=== PATIENT | female | born 1945 | race Caucasian/White ===

== ENCOUNTER → 2016-06-15 | Outpatient (CLI) | payer OTHER ==
[~2016-06-15] MED LIST: ALDACTONE25 M1 PO; AMBIEN10 M1 PO; ASPIRIN81 M1 PO; ATENOLOL; ATENOLOL25 MG PO; AUGMENTIN 875875 MG PO; BAYER GENUINE325 M1 PO; CITALOPRAM20 MG PO; DOXY-D100 MG PO; DOXYCYCLINE100 M3 PO; Diclofenac Sod100 MG; FOLIC ACID1 MG PO; FOSAMAX70 MG PO; LISINOPRIL2.5 MG PO; MISOPROSTOL200 MCG; MUCINEX DM 30/61 TAB PO; MUPIROCIN21 T; NICODERM21 MG/24 H TD; OYSCO 500 + D 51 TAB PO; PREDNISONE10 MG PO; PREDNISONE5 MG PO; PROAIR; PROAIR HFA0.09 MG/AC INH; ROBITUSSIN AC 10 MG/ PO; ROBITUSSIN-AC120 ML PO; SPIRONOLACT; SYMBICORT1 AE1 INH; VITAMIN D; VITAMIN D50000 I1 PO; ZESTRIL,PRINIVIL5 MG PO; ZESTRIL2.5 MG PO
[2016-06-15 08:46] LABS: BASO # 0.1 10*3/uL (0.0-0.1); BASO % 0.8 % (0.0-1.0); EOS # 0.2 10*3/uL (0.0-0.4); EOS % 3.1 % (1.0-4.0); HEMATOCRIT 47.7 % (37.0-47.0); HEMOGLOBIN 15.7 g/dl (12.0-16.0); LYMPH % 26.5 % (27.0-41.0); MEAN CORPUSCULAR HGB 30.6 pg (27.0-31.0); MEAN CORPUSCULAR HGB CONC 32.9 g/dl (33.0-37.0); MEAN PLATELET VOLUME 10.5 fl (9.6-12.3); MONO # 0.7 10*3/uL (0.1-1.0); MONO % 8.7 % (3.0-9.0); NEUT # 4.5 10*3/uL (2.3-7.9); NEUT % 60.4 % (47.0-73.0); PLATELET COUNT AUTOMATED 228 10*3/uL (130-400); RED BLOOD COUNT 5.13 10*6/uL (4.10-5.10); RED CELL DISTRI WIDTH 12.6 % (0-14.5); WHITE BLOOD COUNT 7.5 10*3/uL (4.8-10.8)
[2016-06-15 08:48] LABS: ALBUMIN 3.8 gm/dl (3.1-4.5); ALKALINE PHOSPHATASE 72 U/L (45-117); BILIRUBIN, TOTAL 0.5 mg/dl (0.2-1.0); BUN 13 mg/dl (7-24); CARBON DIOXIDE 28 mmol/L (21-32); CHLORIDE 107 mmol/L (98-107); CHOLESTEROL 208 mg/dL (<200); EST GLOM FILT AFRICAN AMERICAN > 60 ml/min; GLUCOSE 102 mg/dL (65-99); HDL CHOLESTEROL 41 mg/dl (40-60); LDL CHOLESTEROL 116 mg/dL (9-159); POTASSIUM 4.4 mmol/L (3.5-5.1); SGOT/AST 15 IU/L (3-35); SGPT/ALT 19 U/L (12-78); SODIUM 142 mmol/L (136-145); TOTAL PROTEIN 7.7 gm/dL (6.4-8.2); TRIGLYCERIDES 257 mg/dl (<150); VLDL CHOLESTEROL 51 mg/dL (6-40)
== END | disposition home or self-care (01) ==
LOC: LAB 07:56
PROVIDERS: Family Medicine
DX: Z00.00 Encounter for general adult medical examination without abnormal findings (principal); I50.9 Heart failure, unspecified; J44.9 Chronic obstructive pulmonary disease, unspecified; I25.5 Ischemic cardiomyopathy; I10 Essential (primary) hypertension; E78.5 Hyperlipidemia, unspecified; Z95.810 Presence of automatic (implantable) cardiac defibrillator; Z72.0 Tobacco use; R06.02 Shortness of breath

== ENCOUNTER → 2016-10-07 | Outpatient (CLI) | payer OTHER | END | disposition home or self-care (01) | LOC: MAMMO 12:09 | DX: Z12.31 Encounter for screening mammogram for malignant neoplasm of breast (principal); Z13.820 Encounter for screening for osteoporosis; E55.9 Vitamin D deficiency, unspecified; F17.200 Nicotine dependence, unspecified, uncomplicated; Z78.0 Asymptomatic menopausal state; Z90.710 Acquired absence of both cervix and uterus; Z91.81 History of falling ==

== ENCOUNTER → 2016-10-08 | Outpatient (CLI) | payer OTHER ==
[2016-10-08 08:19] LABS: BASO # 0.1 10*3/uL (0.0-0.1); BASO % 0.9 % (0.0-1.0); EOS # 0.2 10*3/uL (0.0-0.4); EOS % 2.5 % (1.0-4.0); HEMATOCRIT 45.8 % (37.0-47.0); HEMOGLOBIN 14.8 g/dl (12.0-16.0); IG # 0.1 10*3/uL (0.0-0.1); LYMPH # 1.6 10*3/uL (1.3-4.4); LYMPH % 20.8 % (27.0-41.0); MEAN CELL VOLUME 91.6 fl (81.0-99.0); MEAN CORPUSCULAR HGB 29.6 pg (27.0-31.0); MEAN CORPUSCULAR HGB CONC 32.3 g/dl (33.0-37.0); MONO # 0.5 10*3/uL (0.1-1.0); MONO % 7.2 % (3.0-9.0); NEUT # 5.1 10*3/uL (2.3-7.9); NEUT % 67.8 % (47.0-73.0); PLATELET COUNT AUTOMATED 225 10*3/uL (130-400); WHITE BLOOD COUNT 7.5 10*3/uL (4.8-10.8)
[2016-10-08 08:48] LABS: ALBUMIN 3.7 gm/dl (3.1-4.5); ALKALINE PHOSPHATASE 70 U/L (45-117); BILIRUBIN, TOTAL 0.3 mg/dl (0.2-1.0); BUN 16 mg/dl (7-24); CARBON DIOXIDE 28 mmol/L (21-32); CHLORIDE 109 mmol/L (98-107); CHOLESTEROL 188 mg/dL (<200); EST GLOM FILT AFRICAN AMERICAN > 60 ml/min; GLUCOSE 92 mg/dL (65-99); HDL CHOLESTEROL 44 mg/dl (40-60); LDL CHOLESTEROL 120 mg/dL (9-159); POTASSIUM 4.2 mmol/L (3.5-5.1); SGOT/AST 17 IU/L (3-35); SGPT/ALT 14 U/L (12-78); SODIUM 145 mmol/L (136-145); TOTAL PROTEIN 7.3 gm/dL (6.4-8.2); TRIGLYCERIDES 121 mg/dl (<150); VLDL CHOLESTEROL 24 mg/dL (6-40)
[2016-10-08 08:56] LABS: THYROID STIM HORMONE (HS) 0.953 uIU/ml (0.358-4.75)
== END | disposition home or self-care (01) ==
LOC: LAB 08:01
PROVIDERS: Family Medicine
DX: I11.0 Hypertensive heart disease with heart failure (principal); I50.9 Heart failure, unspecified; E78.5 Hyperlipidemia, unspecified; I25.5 Ischemic cardiomyopathy; J44.9 Chronic obstructive pulmonary disease, unspecified; Z95.810 Presence of automatic (implantable) cardiac defibrillator

== ENCOUNTER → 2017-02-09 | Outpatient (CLI) | payer OTHER | END | disposition home or self-care (01) | LOC: LAB 15:55 | DX: R19.7 Diarrhea, unspecified (principal) ==

== ENCOUNTER → 2017-03-18 | Outpatient (CLI) | payer OTHER | END | disposition home or self-care (01) | LOC: LAB 15:36 | DX: A04.8 Other specified bacterial intestinal infections (principal) ==

== ENCOUNTER 2017-03-27 02:32 | Inpatient (IN) | payer OTHER ==
[~2017-03-27] VITALS: Ht 167.6 cm; Wt 67.2 kg
[2017-03-27] VITALS (7 sets, daily range): BP systolic 108–130; BP diastolic 47–80
--- NOTE | ~2017-03-27 | CON ---
[place], [place] REPORT OF CONSULTATION NAME: [id number] UN[facility] #: [id number] ROOM: [facility] DOCTOR: PHUC SUTHERLAND ED.D) BIRTHDATE: [birth year] DOS: 03/28/2017 HISTORY OF PRESENT ILLNESS: The patient is a 71-year-old female referred by the hospitalist for an overdose in a suicide attempt. At the present time, this patient is in the intensive care unit at [facility]. She presently resides with her boyfriend and she does have 3 children. Her family physician has been Dr. Arzola. PAST MEDICAL HISTORY: Pertinent for COPD, major depression, hypertension and cardiac disease. MEDICATIONS: Include ProAir, Fosamax, Symbicort, atenolol, vitamin D, Zestril, Aldactone and Ambien. She apparently overdosed on trazodone, amoxicillin, Flagyl, and Prilosec. SOCIAL HISTORY: The patient does admit smoking 1 pack of cigarettes per day and drinks alcohol on weekends, but she denies significant alcohol consumption. PHYSICAL EXAMINATION: This patient was awake, alert and oriented in all 3 spheres, but was extremely tearful. She admits that she wants to kill herself, but states she will not tell me how she is going to do it. I suggested she have inpatient psychiatric care and she states she really want to go for inpatient care, but she is still suicidal, so therefore, she will go and if she refuses to go, she should be pink slipped to make her an involuntary admission. This patient does not appear to be having any delusional thoughts or hallucinations at this time. DIAGNOSIS: Major depressive disorder, recurrent -- severe. RECOMMENDATIONS: 1. The patient should be admitted to behavioral health unit as soon as possible and this was discussed with Dr. Webb and Dr. Drew. 2. If the patient refuses admission to the behavioral health unit, she should be pink slipped for emergency admission. Thank you very much for this consult. PHUC SUTHERLAND ED.D CM:CONSTR:REPORT OF CONSULTATION 1059 03/28/17 6309 interface
[~2017-03-27 02:32] MED LIST changes: +PROAIR HFA8.5 GM INH
[2017-03-27 03:03] LABS: BASO # 0.1 10*3/uL (0.0-0.1); BASO % 0.8 % (0.0-1.0); EOS # 0.1 10*3/uL (0.0-0.4); EOS % 1.2 % (1.0-4.0); HEMATOCRIT 42.8 % (37.0-47.0); HEMOGLOBIN 14.6 g/dl (12.0-16.0); LYMPH # 1.8 10*3/uL (1.3-4.4); LYMPH % 27.6 % (27.0-41.0); MEAN CELL VOLUME 90.7 fl (81.0-99.0); MEAN CORPUSCULAR HGB 30.9 pg (27.0-31.0); MEAN CORPUSCULAR HGB CONC 34.1 g/dl (33.0-37.0); MEAN PLATELET VOLUME 9.6 fl (9.6-12.3); MONO # 0.5 10*3/uL (0.1-1.0); MONO % 7.3 % (3.0-9.0); NEUT # 4.1 10*3/uL (2.3-7.9); NEUT % 62.2 % (47.0-73.0); PLATELET COUNT AUTOMATED 211 10*3/uL (130-400); RED BLOOD COUNT 4.72 10*6/uL (4.10-5.10); RED CELL DISTRI WIDTH 12.4 % (0-14.5); WHITE BLOOD COUNT 6.6 10*3/uL (4.8-10.8)
[2017-03-27 03:16] LABS: BILIRUBIN NEGATIVE (NEGATIVE); BLOOD TRACE-INTACT (NEGATIVE); CLARITY CLEAR (CLEAR); COLOR YELLOW (YELLOW); GLUCOSE NEGATIVE (NEGATIVE); KETONE NEGATIVE (NEGATIVE); LEUKO ESTERASE 1+ (NEGATIVE); NITRITE NEGATIVE (NEGATIVE); PH 5.5 (5.0-9.0); SPECIFIC GRAVITY <= 1.005 (1.005-1.030); UROBILINOGEN 0.2 E.U./dl (0.2-1.0)
[2017-03-27 03:21] LABS: ALBUMIN 3.7 gm/dl (3.1-4.5); ALKALINE PHOSPHATASE 67 U/L (45-117); BUN 14 mg/dl (7-24); CHLORIDE 103 mmol/L (98-107); POTASSIUM 3.9 mmol/L (3.5-5.1); SGOT/AST 21 IU/L (3-35); SGPT/ALT 18 U/L (12-78); SODIUM 139 mmol/L (136-145); TOTAL PROTEIN 7.4 gm/dL (6.4-8.2)
[2017-03-27 03:22] LABS: BACTERIA 1+
[2017-03-27 03:23] LABS: ACETAMINOPHEN (TYLENOL) < 2.0 ug/ml (10-30); TROPONIN I < 0.015 ng/ml (<0.045)
[2017-03-27 03:24] LABS: URINE AMPHETAMINES < 1000 (1000ng/ml); URINE BARBITURATES < 200 (200ng/ml); URINE BENZODIAZEPINES < 200 (200ng/ml); URINE CANNABINOIDS (THC) < 50 (50ng/ml); URINE COCAINE < 300 (300ng/ml); URINE METHADONE < 300 (300ng/ml); URINE OPIATES < 300 (300ng/ml)
[2017-03-27 03:25] LABS: URINE PHENCYCLIDINE < 25 (25ng/ml)
--- NOTE | 2017-03-27 04:13 | NUR ---
PATIENT WITH SALINE AND MAG SULFATE RUNNING AT TIME OF ADMISSION
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
[2017-03-27 07:09] LABS: THYROID STIM HORMONE (HS) 0.677 uIU/ml (0.358-4.75)
[2017-03-27 07:10] LABS: ACT PARTIAL THROMBO TIME 22.7 SECONDS (20.8-31.5); INTERNATIONAL NORM RATIO 0.9 (2.0-3.5)
[2017-03-27 07:46] LABS: VITAMIN D, 25-HYDROXY 32.7 ng/mL (30-100)
[2017-03-27] MEDS ORDERED: TRAZODONE50 MG PO (08:32)
--- NOTE | 2017-03-27 08:37 | NUR ---
Listless, when asked if she still felt suicidal states "I just want to go away" Dr. Simons was notifie co f consult and stated he would see this pt. in thae AM, just keep her here.
--- NOTE | 2017-03-27 08:42 | NUR ---
Suicide risk scale is 53.
--- NOTE | 2017-03-27 08:43 | NUR ---
Breakfast offered. declined sy=tates wants nothing, Not making eye contact during assessment , staring at the cieling.
--- NOTE | 2017-03-27 09:58 | NUR ---
S.O brought in a bag of clothing it was labeled and placed on the counter. med list brought in and updated.
--- NOTE | 2017-03-27 10:13 | NUR ---
Dtr. called in and update was given. While speaking with her daughter . I heard her tell her dtr. "I just don't want to live anymore". Clothing added to clothing list.
--- NOTE | 2017-03-27 10:21 | NUR ---
poisen control called in update was given.
--- NOTE | 2017-03-27 12:20 | NUR ---
took minimal amt breakfast of toat juice and coffee. .Moist cough. pt. at times will cough forcefully and attempt to puke. nasal congestion noted lungs remain clear to ascultation. Mostly side lying with eyes closed.
--- NOTE | 2017-03-27 15:52 | NUR ---
Dr. Murray ans. service was notified of consult.
[2017-03-28] VITALS: BP 92/54
[2017-03-28 04:00] VITALS: BP 108/54
[2017-03-28 05:03] LABS: BASO % 0.4 % (0.0-1.0); EOS # 0.2 10*3/uL (0.0-0.4); EOS % 3.1 % (1.0-4.0); HEMOGLOBIN 12.7 g/dl (12.0-16.0); LYMPH # 1.4 10*3/uL (1.3-4.4); LYMPH % 20.5 % (27.0-41.0); MEAN CORPUSCULAR HGB 30.7 pg (27.0-31.0); MEAN CORPUSCULAR HGB CONC 32.6 g/dl (33.0-37.0); MEAN PLATELET VOLUME 9.8 fl (9.6-12.3); MONO # 0.6 10*3/uL (0.1-1.0); MONO % 9.4 % (3.0-9.0); NEUT # 4.5 10*3/uL (2.3-7.9); PLATELET COUNT AUTOMATED 184 10*3/uL (130-400); RED BLOOD COUNT 4.14 10*6/uL (4.10-5.10); RED CELL DISTRI WIDTH 12.8 % (0-14.5); WHITE BLOOD COUNT 6.8 10*3/uL (4.8-10.8)
[2017-03-28 05:10] LABS: MEAN CELL VOLUME 94.2 fl (81.0-99.0)
[2017-03-28 05:31] LABS: ALBUMIN 2.8 gm/dl (3.1-4.5); ALKALINE PHOSPHATASE 63 U/L (45-117); BUN 10 mg/dl (7-24); CHLORIDE 111 mmol/L (98-107); CREATININE 0.66 mg/dL (0.55-1.02); POTASSIUM 4.1 mmol/L (3.5-5.1); SGOT/AST 17 IU/L (3-35); SGPT/ALT 14 U/L (12-78); SODIUM 143 mmol/L (136-145); TOTAL PROTEIN 5.9 gm/dL (6.4-8.2)
--- NOTE | 2017-03-28 07:48 | NUR ---
Awake, listless. Discussed depression w/ pt. states just dosen't want to live anymore. When asked if she had a plan , she stated yes but she isn't going to tell anyone.
[2017-03-28 08:00] VITALS: BP 124/61
--- NOTE | 2017-03-28 09:40 | NUR ---
Dr. Simons in to [facility]. will speak with dr. guzman on his arrival. S.0 in to visit. initally refused all meds and then took them with much encouragement , coughing after ingestion and weepy. Breakfast encouraged by S.O.
--- NOTE | 2017-03-28 11:11 | NUR ---
in , spoke w/ Dr. Simons. Medically cleared to go to [facility] [place] , awiting cardiology for echo prior to transfer.
[2017-03-28 12:00] VITALS: BP 122/64
[2017-03-28] MEDS ORDERED: ZOLPIDEM TART10 MG PO (13:02)
--- NOTE | 2017-03-28 14:05 | NUR ---
Echo complete , IV removed. U aware. Discharge pending.
--- NOTE | 2017-03-28 14:57 | NUR ---
Discharged to [facility].
[2017-03-28] MEDS ORDERED: CELEXA20 MG PO (15:14)
[2017-03-28] MEDS ORDERED: TRAZODONE50 MG PO (15:15)
== END 2017-03-28 14:57 | disposition home health service (06) | DRG 917 ==
LOC: ED 02:32 → EDHOLD 03:28 → ICCU 03:28
PROVIDERS: Internal Medicine; Student in an Organized Health Care Education/Training Program; ADMIT Internal Medicine
DX: T43.212A Poisoning by selective serotonin and norepinephrine reuptake inhibitors, intentional self-harm, initial encounter (principal); A41.9 Sepsis, unspecified organism; E43 Unspecified severe protein-calorie malnutrition; F33.2 Major depressive disorder, recurrent severe without psychotic features; N39.0 Urinary tract infection, site not specified; J44.9 Chronic obstructive pulmonary disease, unspecified; E87.8 Other disorders of electrolyte and fluid balance, not elsewhere classified; F10.920 Alcohol use, unspecified with intoxication, uncomplicated; T36.0X2A Poisoning by penicillins, intentional self-harm, initial encounter; T37.3X2A Poisoning by other antiprotozoal drugs, intentional self-harm, initial encounter; F17.210 Nicotine dependence, cigarettes, uncomplicated; T47.1X2A Poisoning by other antacids and anti-gastric-secretion drugs, intentional self-harm, initial encounter; E78.1 Pure hyperglyceridemia; I45.81 Long QT syndrome; I10 Essential (primary) hypertension; F41.9 Anxiety disorder, unspecified; G47.00 Insomnia, unspecified; Z53.29 Procedure and treatment not carried out because of patient's decision for other reasons; Z90.49 Acquired absence of other specified parts of digestive tract; Z90.710 Acquired absence of both cervix and uterus; Z83.3 Family history of diabetes mellitus; Z82.49 Family history of ischemic heart disease and other diseases of the circulatory system; Z79.899 Other long term (current) drug therapy; Y92.098 Other place in other non-institutional residence as the place of occurrence of the external cause; Z68.23 Body mass index [BMI] 23.0-23.9, adult

== ENCOUNTER 2017-03-28 14:00 | Inpatient (IN) | payer OTHER ==
[~2017-03-28] VITALS: Ht 172.7 cm; Wt 64.6 kg
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
[~2017-03-28 14:00] MED LIST changes: +TRAZODONE50 MG PO; +ZOLPIDEM TART10 MG PO
--- NOTE | 2017-03-28 15:02 | NUR ---
NATALIA MILLIGAN a 71 year old F admitted via wheel chair from the [facility] as a VOLUNTARY admission. Arrived on unit at 1502. ALLERGIES: NKDA. Vital signs are: [id number]% ROOM AIR. The client signed the following forms with stated understanding: Authorization For The Release of Medical Information, Clothing List, Consent to Voluntary Admission and Hospitalization, Consent and Release Forms/Receipt of Rights, Acknowledgement of Advance Directive Information, Behavioral Health Consent Form, and Informed Consent of Medications. Admitted under the services of Dr. HOWIE EMANUEL,[facility]. A search was conducted and hazardous articles were removed. Client was oriented to the unit. [facility]
[2017-03-28] MEDS ORDERED: CELEXA20 MG PO (15:14)
[2017-03-28] MEDS ORDERED: TRAZODONE50 MG PO (15:15)
--- NOTE | 2017-03-28 15:19 | NUR ---
DR. GRAMAJO NOTIFIED OF CONSULT FOR MEDICAL MANAGEMENT.
--- NOTE | 2017-03-28 15:22 | NUR ---
HOME MEDS VERIFIED WITH PHARMACIST AT [facility] IN [place], PT'S HOME PHARMACY. MED REC UPDATED ACCORDING TO MED LIST AND DISCHARGE MEDS FROM ICU. MEDS REVIEWED WITH DR. DENISE. NEW ORDERS RECIEVED, READ BACK AND VERIFIED.
[2017-03-28 15:27] VITALS: BP 116/67
[2017-03-28 16:29] VITALS: BP 116/67
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
[2017-03-28 20:18] VITALS: BP 110/64
--- NOTE | 2017-03-28 21:32 | NUR ---
24 HR chart check completed.
--- NOTE | 2017-03-28 22:43 | NUR ---
RESTED IN HER ROOM & CAME TO DINING ROOM VIA WHEELCHAIR FOR HS SNACK. COMPLIANT WITH HS MEDICATIONS. GAIT SLIGHTLY UNSTEADY AT TIMES. DEPRESSED MOOD SAD & TEARFUL. DENIES SUICIDAL FEELINGS & STATED THAT WHAT SHE DID WAS STUPID. VOICED HOPELESS HELPLESS FEELINGS WITH FAMILY ISSUES & MEDICAL ISSUES. DENIES HAVING WISH BUT STATED, "WHEN ITS MY TIME TO GO ITS MY TIME TO GO". DENIES SENSORY DISTURBANCE & NONE IS NOTED THIS EVENING. PT DID STATE THAT SHE IS TIRED & RESTED IN BED.
--- NOTE | 2017-03-29 05:33 | NUR ---
PT HAS BEEN OBSERVED ON Q 15 MIN CHECKS & HAS SLEPT QUIETLY THROUGHOUT THE SHIFT PAST 2129 WITH 1 BRIEF AWAKENING TO GO TO THE BATHROOM WITH ASSISTANCE FROM STAFF.
[2017-03-29 07:44] LABS: ALKALINE PHOSPHATASE 64 U/L (45-117); BUN 10 mg/dl (7-24); CHLORIDE 108 mmol/L (98-107); CHOLESTEROL 163 mg/dL (<200); CREATININE 0.66 mg/dL (0.55-1.02); HDL CHOLESTEROL 35 mg/dl (40-60); LDL CHOLESTEROL 97 mg/dL (9-159); POTASSIUM 4.5 mmol/L (3.5-5.1); SGOT/AST 13 IU/L (3-35); SGPT/ALT 15 U/L (12-78); SODIUM 142 mmol/L (136-145); TOTAL PROTEIN 6.4 gm/dL (6.4-8.2); TRIGLYCERIDES 154 mg/dl (<150); VLDL CHOLESTEROL 31 mg/dL (6-40)
[2017-03-29 08:27] VITALS: BP 133/62
--- NOTE | 2017-03-29 08:56 | NUR ---
TREATMENT TEAM WAS HELD WITH THE FOLLOWING: DR. DENISE, RESIDENT, MEDICAL STUDENT, RNs, AT, SWs. NO DISCHARGE DATE.
--- NOTE | 2017-03-29 10:00 | NUR ---
DR LEA ON UNIT TO SEE PATIENT.
--- NOTE | 2017-03-29 11:34 | NUR ---
Exercise/Riddles & Games Patient did not attend group this morning. Patient was asleep in her room. patient was encourageed to join group but still refused
--- NOTE | 2017-03-29 15:05 | NUR ---
Reminiscing And Puzzles Patient did not attend group this afternoon. Patient was asleep in bed.
--- NOTE | 2017-03-29 15:57 | NUR ---
PATIENT IS ALERT AND ORIENT TO PERSON, PLACE AND TIME. RESPIRATIONS ARE EASY, NON-LABORED ON ROOM AIR. MOOD IS SAD AND DEPRESSED. THOUGHT PROCESS IS BECOMING ORGANIZED. DENIES ANY HALLUCINATIONS, DELUSIONS, HI/SI OR PAIN. PATIENT REQUIRES 1 PERSON SUPERVISION WITH ACTIVITIES OF DAILY LIVING. CONTINENT OF BOWEL AND BLADDER. MEAL INTAKES ARE GOOD WITH ADEQUATE FLUIDS. SELF PROPELS IN WHEELCHAIR THOUGHOUT THE UNIT. PATIENT IS ISOLATIVE IN ROOM AND UP FOR MEALS. PATIENT IN CALM, INTERACTIVE WITH STAFF. MEDICATION COMPLIANT WITH MED EDUCATION. Q 15 MINUTE SAFETY CHECKS MAINTIAINED. CONTINUE TO ENCOURAGE PATIENT TO EXPRESS FEELING AND PROVIDE 1:1 NEEDED.
--- NOTE | 2017-03-29 16:14 | NUR ---
Shift chart check completed.
[2017-03-29 20:00] VITALS: BP 109/60
--- NOTE | 2017-03-29 21:30 | NUR ---
PATIENT URINE COLLECTED VIA CLEAN CATCH. URINE YELLOW WITH OUTPUT OF 200ML. PATIENT COMPLAINT OF DISCOMFORT WITH URINATION AT TIMES. URINE SENT TO LABORATORY
--- NOTE | 2017-03-29 22:00 | NUR ---
PATIENT WITH NO SUICIDAL OR HOMICIDAL IDEATIONS. PATIENT MOOD DEPRESSED AND ISOLATIVE TO ROOM AT TIMES. PATIENT WITH NO HALLUCINATION OR DELUSIONS AT THIS TIME. PATIENT WITH UNSTEADY GAIT AND USES WHEELCHAIR. MEDICATION COMPLIANT
--- NOTE | 2017-03-30 01:38 | NUR ---
24 HR chart check completed.
[2017-03-30 08:04] VITALS: BP 106/63
--- NOTE | 2017-03-30 09:17 | NUR ---
TREATMENT TEAM WAS HELD WITH DR. DENISE, RNs, AT, SW. REFERRRAL TO ESTER SMITH FOR COUNELOING. HEAVY SMOKER REFUSED PATCH.
--- NOTE | 2017-03-30 10:43 | NUR ---
Exercises and fall remenissing Patient attended group with appropriate participation. Patient engaged easily with exercises and group discussion. Patient at times requires redirection to stay on topic. Patient report no SI throughout group.
--- NOTE | 2017-03-30 10:47 | NUR ---
Exercises and remenissing Patient did not attend group stating desire to sleep at this time. Encouraged participation and educated on benefits however patients continued to decline.
--- NOTE | 2017-03-30 11:02 | NUR ---
Exercises and remenissing Patient did not attend group this am stating she wanted to sleep. Educated and encouraged patient for participation however patient continued to decline.
--- NOTE | 2017-03-30 11:18 | NUR ---
JORGITO OSEGUERA'S OFFICE NOTIFIED OF NEW CONSULT FOR COUNSELING SERVICES.
--- NOTE | 2017-03-30 11:41 | NUR ---
Occupational Therapy evaluation completed this date on [facility] with full to follow. Patient was hospitalized with suicide and drug overdose. She lives with her boyfriend in a mobile home and plans to return there upon d/c. She was seated in a w/c and has used since on [facility]. She is able to perform five times sit to insurance job titles 23 seconds. She was able to perform sit to stands safely and reports that at home she walked very little. She reports that she is not "supposed to raise her arms overhead since pacer 2013". She demonstrates good functional mobilty at a slow rate and indep in ADLs and xfers. At this time no further OT indicated. Thank you for this referral. Anisa Segovia OTR/L
--- NOTE | 2017-03-30 11:51 | NUR ---
PHYSICAL THERAPY PAtient evaluated on 3, full evaluation to follow. Continue with PT as per plan of care with fall and unit three precautions. Return to home with boyfriend and home health RN and PT. PAtient is moderate complexity is chart review, tests and evaluation: 12054. Thank you for this referral. Martita Rouse,PT
--- NOTE | 2017-03-30 14:44 | NUR ---
Meaningful Me group Patient attended and actively participated in group. Patient able to answer personal/coping questions along with actively join in group discussion with peers. Patient does not report any SI or self destructive thoughts. Patient again requires redirection when bringing up being given up as a child. Patient easily redirected.
--- NOTE | 2017-03-30 14:47 | NUR ---
Meaningful Me Patient actively participated in group with appropriate answers/conversation. Patient able to answer coping/personal question with good responces and how to make better choices. Patient does not report any SI or delf destructive thoughts.
--- NOTE | 2017-03-30 17:58 | NUR ---
PATIENT IS ALERT AND ORIENT TO PERSON, PLACE AND TIME, ABLE TO VIOCE NEEDS. RESPIRATION ARE EASY, NON-LABORED ON ROOM AIR. MOOD IS DEPRESSED. THOUGHT PROCESS IS ORGANIZED AND GOAL DIRECTED. DENIES ANY HALLUCINAITONS, DELUSIONS, SI/HI OR PAIN. PATIENT IS COOPERATIVE AND INTERACTIVE WITH STAFF AND OTHER PATIENTS. PARTICIPATES IN GROUP SESSION THIS AFTERNOON. SUPERVISION AND ASSISTANCES NEEDED. PATIENT IS AMBULATORY WITH STEADY GAIT. CONTINENT OF BOWEL AND BLADDER. MEAL INTAKES ARE GOOD WITH ADEQUATE FLUIDS. Q 15 MINUTE SAFETY CHECKS. MEDICATION COMPLIANT WITH EDUCAITON PROVIDED. CONTINUE TO MONITOR PATIENT'S MOOD AND ENCOURAGE PATIENT TO NOTIFY NURSE IF HAVING THOUGHTS OF SUICIDE. 1:1 PROVIDED TO EXPRESS FEELING NEEDED.
[2017-03-30 20:00] VITALS: BP 118/54
--- NOTE | 2017-03-30 21:30 | NUR ---
PATIENT RESTING IN BED WITH COMPLAINT OF HEADACHE. PATIENT STATED THAT SHE DID NOT SLEEP MUCH THE PREVIOUS NIGHT DUE TO ANOTHER PATIENT YELLING THROUGHOUT THE NIGHT. TYLENOL 650MG GIVEN WITH EFFECTIVE RESULTS. PATIENT DENIES SUICIDE/HOMICIDE IDEATIONS. PATIENT CALM AND PURPOSEFUL. PATIENT STATED SHE WAS TIRED
--- NOTE | 2017-03-31 03:53 | NUR ---
24 HR chart check completed.
--- NOTE | 2017-03-31 06:54 | NUR ---
Q 15 MINUTE CHECKS MAINTAINED. SLEPT > 8 HOURS THIS THROUGHOUT SHIFT. CONTINUES ON PYRIDIUM. VOICES NO COMPLAINT OF DYSURIA AT THIS TIME
[2017-03-31 07:54] VITALS: BP 113/53
--- NOTE | 2017-03-31 08:15 | NUR ---
TREATMENT TEAM WAS HELD WITH THE FOLLOWING: DR. DENISE, SEARCH CONSULTANT, MEDICAL STUDENT, RNs, SWs, AT. DR. DENISE DISCHARGING PT Tuesday03-31-17. FOLLOW UP WITH [facility] AND DR NATARAJAN PANAMA OFFICE AT [facility]
[2017-03-31] MEDS ORDERED: MIRTAZAPINE15 M2 PO (09:02)
[2017-03-31] MEDS ORDERED: HYDROXYZINE PAM25 M1 PO (09:02)
--- NOTE | 2017-03-31 09:49 | NUR ---
PHYSICAL THERAPY Denae seen this AM 1:1 for her physical therapy session. Pt was up in the day room. Transfer sit/stand and up on wheeled walker which she said that she did not need. Gait 45' with wheeled wakler supervision x 1, no LOB. Followed by gait 290' X 1, supervision X 1, no LOB. Working in gait balance with gait backwards, right and left side stepping, 360 turn CG X 1, no LOB. Pt back up in the day room no complaints. RUFUS VELÁSQUEZ DIRECTOR OF REHABILITATIVE SERVICES.
--- NOTE | 2017-03-31 11:00 | NUR ---
VM FROM DTR UMAIR INWUIRING IF PT WAS BEING DISCHARGE TODAY. SW RETURNED CALL AND DTR CAN MASH FILTER CLOTH CHANGER AT NOON.
--- NOTE | 2017-03-31 11:22 | NUR ---
Conversation and Goals Patient did attend group in the very begining but became dizzy and sick to her stomach. AC and nurse escorted PT back to her room
--- NOTE | 2017-03-31 11:47 | NUR ---
Mood is depressed, however Denae reports that she is feeling "better." Dr. Drew in to see Denae this morning with orders received to discharge to home today. Denae denies any thoughts of self harm and states, "That was a stupid thing to do." She reports that she wants "to live" and states a desire to return home today. Energy level is low. Appetite is good. Appropriate in conversation with staff and peers. Refer to [facility] flowsheet for specific monitoring this shift. Discharge medications and follow up appointments reviewed with Denae and daughter. She states that she will comply with all follow up care. Refer to disposition for specific post discharge instructions.
--- NOTE | 2017-03-31 12:11 | NUR ---
DAPHNIE SCHEDULED FOLLOWUP APPOINTMENTS WITH [facility] ON 04/[address] ACOSTA ON 04/04 AT 1:30PM.
--- NOTE | 2017-03-31 12:12 | NUR ---
DAPHNIE AND RN REVIEWED DISCHARGE PAPERWORK WITH PT. PT WAS DISCHARGED HOME WITH [facility] PROVIDING TRANSPORATION. FOLLOW UP APPOINTMENTS ON WEDNESDAY 04/04 [facility] [address] ACOSTA 04/04 1:30PM.
--- NOTE | 2017-03-31 12:16 | NUR ---
SW MADE FOLLOW UP APPOINTMENTS WITH [facility] FOR 04/04 AT 1:15 AND [facility] FOR 04/06 AT 10:40.
--- NOTE | 2017-03-31 12:17 | NUR ---
SW AND RN REVIEWED DISHCARGE PAPERWORK WIT PT. SIGNATURES OBTAINED AND COPY GIVEN TO PT. PT WAS DISCHARGED HOME WITH [facility] PROVIDING TRANSPORTATION. FOLLOW [facility] ON 06/04 AT 1:15PM AND [facility] 04/06 AT 10:40AM.
--- NOTE | 2017-03-31 12:21 | NUR ---
Medication education and discharge appointments reviewed with Denae's daughter and she states understanding. Denae left this unit on this date @ approximately 12:10 pm. She is alert and oriented and is being accompanied by her daughter. Destination is home. Prior to her departure all personal items were returned to her. Refer to disposition for specific post discharge instructions.
--- NOTE | 2017-03-31 16:27 | NUR ---
Gasoline Truck Crane Operator Note: Discharge information faxed to [facility] and to Hank yanez CNP at [facility].
--- NOTE | 2017-04-01 08:02 | NUR ---
PHYSICAL THERAPY CO-SIGN I approve of the Phyical Therapy notes written above. ANUJ ALMANZA PT
== END 2017-03-31 12:10 | disposition home or self-care (01) | DRG 885 ==
LOC: 3N 14:00
PROVIDERS: ADMIT Psychiatry & Neurology Psychiatry
DX: F33.2 Major depressive disorder, recurrent severe without psychotic features (principal); I42.9 Cardiomyopathy, unspecified; I50.22 Chronic systolic (congestive) heart failure; I11.0 Hypertensive heart disease with heart failure; J44.9 Chronic obstructive pulmonary disease, unspecified; I25.2 Old myocardial infarction; D64.9 Anemia, unspecified; M19.90 Unspecified osteoarthritis, unspecified site; Z87.891 Personal history of nicotine dependence; F34.1 Dysthymic disorder; E78.1 Pure hyperglyceridemia; R94.31 Abnormal electrocardiogram [ECG] [EKG]; G47.00 Insomnia, unspecified; F41.9 Anxiety disorder, unspecified; R30.0 Dysuria; Z95.0 Presence of cardiac pacemaker; Z90.49 Acquired absence of other specified parts of digestive tract; Z90.710 Acquired absence of both cervix and uterus; Z82.49 Family history of ischemic heart disease and other diseases of the circulatory system; Z79.899 Other long term (current) drug therapy; Z91.5 Personal history of self-harm

== ENCOUNTER → 2017-07-19 | Outpatient (CLI) | payer OTHER ==
[~2017-07-19] MED LIST changes: +ASPIR 8181 MG PO; +CELEXA20 MG PO; +FOSAMAX70 M1 PO; -FOSAMAX70 MG PO; +HYDROXYZINE PAM25 M1 PO; +MIRTAZAPINE15 M2 PO
--- NOTE | ~2017-07-19 | ST ---
[place], [place] EXERCISE STRESS TEST REPORT NAME: [facility]: [id number] UNIT #: [id number] ROOM: DOCTOR: DEANDRE DE LA CRUZ MD BIRTHDATE: [birth year] DOS: 07/19/2017 Dobutamine portion of the dobutamine stress test. Baseline cardiogram normal sinus rhythm with mild ST depressions in the inferior leads. The patient received dobutamine up to 30 mcg in 10 mcg increments every 3 minutes. Peak heart rate is 143, more than 85% of predicted heart rate. There is more pronounced ST depression in the inferior leads. The patient received baseline echocardiogram, which revealed an ejection fraction about 10% with akinetic septum and global hypokinesis with dobutamine. There is dyskinesis of the anterior wall and the anteroapical segment, mild improvement of the ejection fraction of the inferior wall. Total global ejection fraction improved to about 15%. The patient continues to smoke, extremely dyspneic with an EF of 10-15%. FINAL IMPRESSION: Abnormal dobutamine stress echo. Worsening of the ST segment with dobutamine. Positive shortness of breath. Dobutamine ejection fraction improved from 10% to 15%, mostly suggestion of scar tissue, but there is worsening of the anterior wall and anteroapical segment. We will consider to do a right and left heart catheterization. DEANDRE DE LA CRUZ MD CM:STRESS:EXERCISE STRESS TEST REPORT [id number] DEANDRE DE LA CRUZ MD
== END | disposition home or self-care (01) ==
LOC: CARD 03:42
DX: I20.9 Angina pectoris, unspecified (principal); R94.39 Abnormal result of other cardiovascular function study; R06.02 Shortness of breath

== ENCOUNTER → 2017-09-01 | Outpatient (CLI) | payer OTHER | END | disposition home or self-care (01) | LOC: RAD 10:23 | DX: J44.9 Chronic obstructive pulmonary disease, unspecified (principal); J40 Bronchitis, not specified as acute or chronic; I25.10 Atherosclerotic heart disease of native coronary artery without angina pectoris; R06.2 Wheezing; I10 Essential (primary) hypertension; I25.2 Old myocardial infarction; F17.200 Nicotine dependence, unspecified, uncomplicated ==

== ENCOUNTER → 2018-08-23 | Outpatient (CLI) | payer OTHER ==
[2018-08-23 10:05] LABS: ALBUMIN 3.7 gm/dl (3.1-4.5); BUN 11 mg/dl (7-24); CHLORIDE 104 mmol/L (98-107); CHOLESTEROL 161 mg/dL (<200); CREATININE 0.66 mg/dL (0.55-1.02); POTASSIUM 4.2 mmol/L (3.5-5.1); SGOT/AST 16 IU/L (3-35); SGPT/ALT 24 U/L (12-78); SODIUM 138 mmol/L (136-145); TOTAL PROTEIN 7.3 gm/dL (6.4-8.2); TRIGLYCERIDES 207 mg/dl (<150); VLDL CHOLESTEROL 41 mg/dL (6-40)
[2018-08-23 10:06] LABS: ALKALINE PHOSPHATASE 71 U/L (45-117); HDL CHOLESTEROL 32 mg/dl (40-60); LDL CHOLESTEROL 88 mg/dL (9-159)
== END | disposition home or self-care (01) ==
LOC: LAB 08:50
PROVIDERS: Registered Nurse Flight
DX: E78.5 Hyperlipidemia, unspecified (principal); E55.9 Vitamin D deficiency, unspecified; R73.01 Impaired fasting glucose

== ENCOUNTER → 2019-03-07 | Outpatient (CLI) | payer OTHER ==
[2019-03-07 12:51] LABS: BASO % 0.6 % (0.0-1.0); EOS # 0.1 10*3/uL (0.0-0.4); EOS % 1.1 % (1.0-4.0); HEMATOCRIT 45.3 % (37.0-47.0); HEMOGLOBIN 14.8 g/dl (12.0-16.0); LYMPH # 2.8 10*3/uL (1.3-4.4); LYMPH % 38.3 % (27.0-41.0); MEAN CELL VOLUME 91.3 fl (81.0-99.0); MEAN CORPUSCULAR HGB 29.8 pg (27.0-31.0); MEAN CORPUSCULAR HGB CONC 32.7 g/dl (33.0-37.0); MEAN PLATELET VOLUME 9.9 fl (9.6-12.3); MONO # 0.5 10*3/uL (0.1-1.0); MONO % 7.4 % (3.0-9.0); NEUT # 3.8 10*3/uL (2.3-7.9); NEUT % 52.3 % (47.0-73.0); PLATELET COUNT AUTOMATED 229 10*3/uL (130-400); RED BLOOD COUNT 4.96 10*6/uL (4.10-5.10); RED CELL DISTRI WIDTH 12.4 % (0-14.5); WHITE BLOOD COUNT 7.3 10*3/uL (4.8-10.8)
[2019-03-07 13:23] LABS: ALBUMIN 3.6 gm/dl (3.1-4.5); ALKALINE PHOSPHATASE 65 U/L (45-117); BUN 11 mg/dl (7-24); CHLORIDE 105 mmol/L (98-107); CHOLESTEROL 180 mg/dL (<200); CREATININE 0.68 mg/dL (0.55-1.02); HDL CHOLESTEROL 34 mg/dl (40-60); IRON 83 ug/dL (50-170); LDL CHOLESTEROL 101 mg/dL (9-159); POTASSIUM 3.6 mmol/L (3.5-5.1); SGOT/AST 18 IU/L (3-35); SGPT/ALT 16 U/L (12-78); SODIUM 139 mmol/L (136-145); TOTAL PROTEIN 6.9 gm/dL (6.4-8.2); TRIGLYCERIDES 224 mg/dl (<150); VLDL CHOLESTEROL 45 mg/dL (6-40)
[2019-03-07 13:27] LABS: THYROID STIM HORMONE (HS) 0.844 uIU/ml (0.358-4.75)
== END | disposition home or self-care (01) ==
LOC: LAB 12:28
PROVIDERS: Registered Nurse Flight
DX: E78.5 Hyperlipidemia, unspecified (principal); R55 Syncope and collapse; R53.83 Other fatigue; D64.9 Anemia, unspecified; Z79.899 Other long term (current) drug therapy

== ENCOUNTER → 2019-03-21 | Outpatient (CLI) | payer OTHER | END | disposition home or self-care (01) | LOC: US 10:42 | DX: I65.23 Occlusion and stenosis of bilateral carotid arteries (principal); R55 Syncope and collapse; R51 Headache; F17.200 Nicotine dependence, unspecified, uncomplicated ==

== ENCOUNTER 2019-07-16 11:52 | Inpatient (IN) | payer OTHER ==
[~2019-07-16] VITALS: Ht 165.1 cm; Wt 57.3 kg
[2019-07-16 11:58] VITALS: BP 95/62
[2019-07-16 13:25] LABS: BASO % 0.4 % (0.0-1.0); EOS % 0.2 % (1.0-4.0); HEMATOCRIT 43.6 % (37.0-47.0); HEMOGLOBIN 14.5 g/dl (12.0-16.0); LYMPH # 2.4 10*3/uL (1.3-4.4); LYMPH % 52.2 % (27.0-41.0); MEAN CELL VOLUME 88.8 fl (81.0-99.0); MEAN CORPUSCULAR HGB 29.5 pg (27.0-31.0); MEAN CORPUSCULAR HGB CONC 33.3 g/dl (33.0-37.0); MEAN PLATELET VOLUME 9.9 fl (9.6-12.3); MONO # 0.6 10*3/uL (0.1-1.0); MONO % 12.6 % (3.0-9.0); NEUT # 1.6 10*3/uL (2.3-7.9); NEUT % 34.4 % (47.0-73.0); PLATELET COUNT AUTOMATED 145 10*3/uL (130-400); RED BLOOD COUNT 4.91 10*6/uL (4.10-5.10); RED CELL DISTRI WIDTH 13.2 % (0-14.5); WHITE BLOOD COUNT 4.5 10*3/uL (4.8-10.8)
[2019-07-16 13:40] LABS: ALBUMIN 3.6 gm/dl (3.1-4.5); ALKALINE PHOSPHATASE 67 U/L (45-117); BUN 15 mg/dl (7-24); CHLORIDE 105 mmol/L (98-107); CREATININE 0.76 mg/dL (0.55-1.02); LIPASE 216 U/L (73-393); POTASSIUM 4.3 mmol/L (3.5-5.1); SGOT/AST 23 IU/L (3-35); SGPT/ALT 22 U/L (12-78); SODIUM 137 mmol/L (136-145); TOTAL PROTEIN 7.1 gm/dL (6.4-8.2)
[2019-07-16 16:00] VITALS: BP 112/60
[2019-07-16] MEDS ORDERED: DIGOXIN125 MCG PO (16:01)
[2019-07-16] MEDS ORDERED: TRAZODONE50 MG PO (16:01)
[2019-07-16 17:25] VITALS: BP 112/60
--- NOTE | 2019-07-16 17:25 | NUR ---
A 73YO FEMALE, admitted to , under the services of MILKA Barrera DO with a diagnosis of COPD EXACERBATION. Chief complaint is SHORTNESS OF BREATH AND COUGHING/CONGESTION. Patient arrived via stretcher from ER. Monitor applied. Initial assessment completed. Vital signs taken and recorded. MILKA BARRERA DO notified of admission to the unit. Orders received. See assessment for past medical history, medications and allergies. Patient and/or family oriented to unit. [facility]. Clothing/patient valuable form completed. SKINNY OTOOLE
--- NOTE | 2019-07-16 19:00 | NUR ---
ASSUMED CARE FOR THIS PT AT THIS TIME. PT RESTING QUIETLY IN BED. NO C/O VOICED AT PRESENT TIME. CALL LIGHT IN REACH.
--- NOTE | 2019-07-16 19:09 | NUR ---
DR. BOSS NOTIFIED OF CONSULT RE: COPD
[2019-07-16 21:19] VITALS: BP 111/61
[2019-07-17] VITALS: BP 111/52
--- NOTE | 2019-07-17 01:31 | NUR ---
24 HR chart check completed.
[2019-07-17 06:34] LABS: HEMATOCRIT 39.8 % (37.0-47.0); MEAN CELL VOLUME 88.6 fl (81.0-99.0); MEAN CORPUSCULAR HGB CONC 32.7 g/dl (33.0-37.0); MEAN PLATELET VOLUME 9.8 fl (9.6-12.3); PLATELET COUNT AUTOMATED 135 10*3/uL (130-400); RED BLOOD COUNT 4.49 10*6/uL (4.10-5.10); RED CELL DISTRI WIDTH 13.1 % (0-14.5)
[2019-07-17 06:47] LABS: WHITE BLOOD COUNT 1.9 10*3/uL (4.8-10.8)
[2019-07-17 06:51] LABS: BUN 14 mg/dl (7-24); CHLORIDE 108 mmol/L (98-107); CREATININE 0.63 mg/dL (0.55-1.02); PHOSPHOROUS 3.4 mg/dL (2.5-4.9); POTASSIUM 4.2 mmol/L (3.5-5.1); SODIUM 139 mmol/L (136-145)
--- NOTE | 2019-07-17 06:58 | NUR ---
CALL PLACED TO DR SIDHU TO REPORT WBC COUNT OF 1.9. NEUTROPENIC CAUTIONS ORDERED.
[2019-07-17 08:00] VITALS: BP 98/50
[2019-07-17 08:19] LABS: ATYPICAL LYMPHS 3 % (0-0); PLATELET SUFFICIENCY NORMAL (NORMAL); TOTAL CELLS COUNTED 100 #CELLS
--- NOTE | 2019-07-17 09:00 | NUR ---
Human Resources Executive in to talk to patient. Patient states lives at home with family. There are no steps in the home. Physician: delfina yanez [facility] [place] [facility] Patient's level of ADLs: INDEPENDENT Patient has working utilities: all working DME: [employer] Follow-up physician's appointment after d/c: will be made by hospitalist nrue director upon discharge Does patient want to access PORTAL?: no Discharge plan discussed with patient, she lives at home, is independent in adls and ambulation, she states she will return home when medically stable and denies any home needs, case management will follow. HARPREET FERRIS
[2019-07-17 09:30] LABS: HEMATOCRIT 37.9 % (37.0-47.0); HEMOGLOBIN 12.6 g/dl (12.0-16.0); MEAN CELL VOLUME 88.1 fl (81.0-99.0); MEAN CORPUSCULAR HGB 29.3 pg (27.0-31.0); MEAN CORPUSCULAR HGB CONC 33.2 g/dl (33.0-37.0); MEAN PLATELET VOLUME 9.8 fl (9.6-12.3); PLATELET COUNT AUTOMATED 133 10*3/uL (130-400); RED CELL DISTRI WIDTH 13.2 % (0-14.5)
[2019-07-17 09:32] LABS: WHITE BLOOD COUNT 1.8 10*3/uL (4.8-10.8)
[2019-07-17 09:48] LABS: ATYPICAL LYMPHS 3 % (0-0); PLATELET SUFFICIENCY NORMAL (NORMAL); TOTAL CELLS COUNTED 100 #CELLS
[2019-07-17 12:00] VITALS: BP 112/57
[2019-07-17 16:00] VITALS: BP 111/53
--- NOTE | 2019-07-17 19:00 | NUR ---
ASSUMED CARE FOR THIS PT AT THIS TIME. NO C/O VOICED AT THIS TIME. HARSH MOIST FREQ HEATER HELPER FORGE COUGH NOTED. SAT 94% RA. CALL LIGHT IN REACH.
[2019-07-17 20:00] VITALS: BP 105/65
[2019-07-18] VITALS: BP 119/50
[2019-07-18 02:25] LABS: BILIRUBIN NEGATIVE (NEGATIVE); BLOOD 1+ (NEGATIVE); CLARITY CLEAR (CLEAR); COLOR YELLOW (YELLOW); GLUCOSE 3+ (NEGATIVE); KETONE NEGATIVE (NEGATIVE); NITRITE NEGATIVE (NEGATIVE); SPECIFIC GRAVITY 1.025 (1.005-1.030); UROBILINOGEN 0.2 E.U./dl (0.2-1.0)
[2019-07-18 02:30] LABS: LEUKO ESTERASE NEGATIVE (NEGATIVE)
[2019-07-18 02:33] LABS: BACTERIA TRACE
[2019-07-18 07:28] LABS: BASO % 0.2 % (0.0-1.0); HEMATOCRIT 39.4 % (37.0-47.0); HEMOGLOBIN 12.9 g/dl (12.0-16.0); LYMPH # 0.8 10*3/uL (1.3-4.4); LYMPH % 17.9 % (27.0-41.0); MEAN CELL VOLUME 89.3 fl (81.0-99.0); MEAN CORPUSCULAR HGB 29.3 pg (27.0-31.0); MEAN CORPUSCULAR HGB CONC 32.7 g/dl (33.0-37.0); MEAN PLATELET VOLUME 10.2 fl (9.6-12.3); MONO # 0.4 10*3/uL (0.1-1.0); MONO % 8.8 % (3.0-9.0); NEUT # 3.3 10*3/uL (2.3-7.9); NEUT % 72.9 % (47.0-73.0); PLATELET COUNT AUTOMATED 159 10*3/uL (130-400); RED BLOOD COUNT 4.41 10*6/uL (4.10-5.10); RED CELL DISTRI WIDTH 13.2 % (0-14.5); WHITE BLOOD COUNT 4.5 10*3/uL (4.8-10.8)
[2019-07-18 08:00] VITALS: BP 102/52
[2019-07-18 08:04] LABS: BUN 16 mg/dl (7-24); CHLORIDE 110 mmol/L (98-107); CREATININE 0.66 mg/dL (0.55-1.02); POTASSIUM 4.4 mmol/L (3.5-5.1); SODIUM 141 mmol/L (136-145)
--- NOTE | 2019-07-18 08:14 | NUR ---
PHYSICAL THERAPY Screen received pt admitted with sepsis and COPD please consult PT if pt's functional status declines below baseline, thank you Teri Ayala PT
--- NOTE | 2019-07-18 09:00 | NUR ---
case management visits with patient, she stated she will return home when medically stable, discussed with her VNA and she declines any home needs at this time
[2019-07-18 12:00] VITALS: BP 109/46
--- NOTE | 2019-07-18 14:45 | NUR ---
Received Palliative order for [facility] to see [facility]. [facility] order to [facility]
[2019-07-18 16:00] VITALS: BP 105/58
--- NOTE | 2019-07-18 16:06 | NUR ---
Nursing screen received and chart reviewed. Patient admitted for COPD exacerbation. If patient has a decline in ADLs, transfers, or functional mobility, please send OT orders. Thank you. Liest Roldan, OTR/L
[2019-07-18 20:00] VITALS: BP 103/49
[2019-07-19] VITALS: BP 98/46
[2019-07-19 06:13] LABS: HEMOGLOBIN 12.5 g/dl (12.0-16.0); LYMPH # 0.9 10*3/uL (1.3-4.4); LYMPH % 16.5 % (27.0-41.0); MEAN CELL VOLUME 90.7 fl (81.0-99.0); MEAN CORPUSCULAR HGB 29.1 pg (27.0-31.0); MEAN CORPUSCULAR HGB CONC 32.1 g/dl (33.0-37.0); MEAN PLATELET VOLUME 10.2 fl (9.6-12.3); MONO # 0.4 10*3/uL (0.1-1.0); MONO % 7.5 % (3.0-9.0); NEUT # 4.1 10*3/uL (2.3-7.9); NEUT % 75.6 % (47.0-73.0); PLATELET COUNT AUTOMATED 177 10*3/uL (130-400); RED CELL DISTRI WIDTH 13.2 % (0-14.5); WHITE BLOOD COUNT 5.4 10*3/uL (4.8-10.8)
[2019-07-19 08:00] VITALS: BP 118/54
--- NOTE | 2019-07-19 08:00 | NUR ---
PATIENT AWAKE, ALERT AND ORIENTED. NO STATED COMPLAINTS AT THIS TIME. VERY MOIST COUGH NOTED BUT NOT PRODUCTIVE FOR SPUTUM PER PT. DENIES PAIN. BED IN LOWEST LOCKED POSITION AND CALL LIGHT WITHIN REACH. WILL CONTINUE TO MONITOR.
--- NOTE | 2019-07-19 09:00 | NUR ---
case management visits with patient, she will return home when medically stable. discussed with her VNA and she was receptive to this, given choice of companies she chose [facility], case management will fax referral to [facility]
[2019-07-19 12:00] VITALS: BP 119/90
--- NOTE | 2019-07-19 13:54 | NUR ---
IN TO ROOM. PATIENT ASLEEP BUT AWAKENS EASILY. NO STATED COMPLAINTS. DENIES PAIN. PT VERY FATIGUED. ENCOURAGED REST AND USE OF FLUTTER. WILL CONTINUE TO MONITOR.
[2019-07-19 16:00] VITALS: BP 116/67
--- NOTE | 2019-07-19 19:47 | NUR ---
PT EDUCATED NPO PAST MIDNIGHT FOR BRONCHOSCOPY IN AM WITH DR BOSS. SURGERY PACKET COMPLETED. NO NEEDS AT THIS TIME. VITALS STABLE.
[2019-07-19 20:00] VITALS: BP 128/66
[2019-07-20] VITALS (9 sets, daily range): BP systolic 96–135; BP diastolic 42–96
--- NOTE | 2019-07-20 08:15 | NUR ---
PT OFF FLOOR FOR BRONCH
[2019-07-20 10:08] LABS: ADENOVIRUS Negative (Negative); INFLUENZA B Negative (Negative); METAPNEUMOVIRUS Negative (Negative); PARAINFLUENZA 1 Negative (Negative); PARAINFLUENZA 2 Negative (Negative); PARAINFLUENZA 3 Negative (Negative); RHINOVIRUS Negative (Negative); RSV A Negative (Negative); RSV B Negative (Negative)
--- NOTE | 2019-07-20 15:04 | NUR ---
PER DR. DE LA CRUZ PT OKAY TO HAVE DIGOXIN
--- NOTE | 2019-07-20 20:16 | NUR ---
IV started right antecubital with #22 protective cath after 0 attempts. Site prepped with Chloroprep. Sterile dressing applied. Patient tolerated procedure well VANE SMALL
[2019-07-21] VITALS: BP 134/59
[2019-07-21 07:00] LABS: CREATININE 0.73 mg/dL (0.55-1.02)
[2019-07-21 08:00] VITALS: BP 112/50
[2019-07-21] MEDS ORDERED: PREDNISONE10 MG PO (11:43)
[2019-07-21] MEDS ORDERED: MUCINEX ER600 MG PO (11:43)
[2019-07-21 12:00] VITALS: BP 126/72
[2019-07-21 12:08] LABS: ACID FAST SPEC PROCESSING Concentration (.)
--- NOTE | 2019-07-21 13:06 | NUR ---
Discharge instructions reviewed with patient/family. Patient receptive and verbalizes understanding. Follow-up care arranged. Written instructions given to patient/family. CORBY GONSALEZ.
[2019-07-22 11:07] LABS: INFLUENZA A Negative (Negative)
== END 2019-07-21 13:06 | disposition home or self-care (01) | DRG 871 ==
LOC: ED 11:52 → 4E 15:30 → EDHOLD 15:30 → 4E 15:46
PROVIDERS: Internal Medicine; Internal Medicine Critical Care Medicine; Physician Assistant; ADMIT Family Medicine
PROC: 0BC18ZZ Extirpation of Matter from Trachea, Via Natural or Artificial Opening Endoscopic (ICD-10-PCS; principal; 2019-07-20)
PROC: 0BC48ZZ Extirpation of Matter from Right Upper Lobe Bronchus, Via Natural or Artificial Opening Endoscopic (ICD-10-PCS; principal; 2019-07-20)
PROC: 0BC58ZZ Extirpation of Matter from Right Middle Lobe Bronchus, Via Natural or Artificial Opening Endoscopic (ICD-10-PCS; principal; 2019-07-20)
PROC: 0BC68ZZ Extirpation of Matter from Right Lower Lobe Bronchus, Via Natural or Artificial Opening Endoscopic (ICD-10-PCS; principal; 2019-07-20)
PROC: 0BC88ZZ Extirpation of Matter from Left Upper Lobe Bronchus, Via Natural or Artificial Opening Endoscopic (ICD-10-PCS; principal; 2019-07-20)
PROC: 0BCB8ZZ Extirpation of Matter from Left Lower Lobe Bronchus, Via Natural or Artificial Opening Endoscopic (ICD-10-PCS; principal; 2019-07-20)
PROC: 0BC38ZZ Extirpation of Matter from Right Main Bronchus, Via Natural or Artificial Opening Endoscopic (ICD-10-PCS; principal; 2019-07-20)
PROC: 0BC98ZZ Extirpation of Matter from Lingula Bronchus, Via Natural or Artificial Opening Endoscopic (ICD-10-PCS; principal; 2019-07-20)
PROC: 0BC78ZZ Extirpation of Matter from Left Main Bronchus, Via Natural or Artificial Opening Endoscopic (ICD-10-PCS; principal; 2019-07-20)
DX: A41.9 Sepsis, unspecified organism (principal); J18.9 Pneumonia, unspecified organism; I50.22 Chronic systolic (congestive) heart failure; J20.9 Acute bronchitis, unspecified; D72.819 Decreased white blood cell count, unspecified; F32.9 Major depressive disorder, single episode, unspecified; I11.0 Hypertensive heart disease with heart failure; I25.5 Ischemic cardiomyopathy; I25.10 Atherosclerotic heart disease of native coronary artery without angina pectoris; I34.0 Nonrheumatic mitral (valve) insufficiency; F41.1 Generalized anxiety disorder; M06.9 Rheumatoid arthritis, unspecified; R91.1 Solitary pulmonary nodule; J43.9 Emphysema, unspecified; E78.1 Pure hyperglyceridemia; F17.210 Nicotine dependence, cigarettes, uncomplicated; Z95.0 Presence of cardiac pacemaker; Z71.6 Tobacco abuse counseling; Z87.01 Personal history of pneumonia (recurrent); Z90.49 Acquired absence of other specified parts of digestive tract; Z90.710 Acquired absence of both cervix and uterus; Z82.49 Family history of ischemic heart disease and other diseases of the circulatory system; Z83.3 Family history of diabetes mellitus; Z79.82 Long term (current) use of aspirin; Z79.899 Other long term (current) drug therapy

== ENCOUNTER → 2020-02-06 | Outpatient (CLI) | payer OTHER ==
[~2020-02-06] MED LIST changes: +DIGOXIN125 MCG PO; +MUCINEX ER600 MG PO
== END | disposition home or self-care (01) ==
LOC: CT 10:39
PROVIDERS: ATTEND Internal Medicine Critical Care Medicine
DX: I25.10 Atherosclerotic heart disease of native coronary artery without angina pectoris (principal); R91.1 Solitary pulmonary nodule

== ENCOUNTER → 2020-10-06 | Outpatient (CLI) | payer OTHER | END | disposition home or self-care (01) | LOC: RAD 09:30 | PROVIDERS: ATTEND Nurse Practitioner Primary Care | DX: M85.89 Other specified disorders of bone density and structure, multiple sites (principal); F17.210 Nicotine dependence, cigarettes, uncomplicated; Z78.0 Asymptomatic menopausal state ==

== ENCOUNTER → 2022-11-23 | Outpatient (CLI) | payer OTHER ==
[~2022-11-23] MED LIST changes: +DECADRON6 M1 PO; +DIGITEK125 MCG PO; +OYSTER SHELL 51 EACH PO; +TRELEGY ELLIPT1 EACH INH
== END | disposition home or self-care (01) ==
LOC: CT 00:43
PROVIDERS: ATTEND Physician Assistant
DX: R91.1 Solitary pulmonary nodule (principal); F17.210 Nicotine dependence, cigarettes, uncomplicated; M25.40 Effusion, unspecified joint

== ENCOUNTER → 2023-04-23 | Outpatient (CLI) | payer OTHER | END | disposition home or self-care (01) | LOC: RAD 10:05 | PROVIDERS: ATTEND Physician Assistant | DX: S22.41XA Multiple fractures of ribs, right side, initial encounter for closed fracture (principal); J98.11 Atelectasis; J44.1 Chronic obstructive pulmonary disease with (acute) exacerbation; R07.81 Pleurodynia; X58.XXXA Exposure to other specified factors, initial encounter; Y93.89 Activity, other specified; Y92.89 Other specified places as the place of occurrence of the external cause; Y99.8 Other external cause status ==

== ENCOUNTER 2023-04-26 15:19 | Emergency (ER) | payer OTHER ==
[~2023-04-26] VITALS: Ht 165.1 cm; Wt 47.6 kg
[2023-04-26 16:55] LABS: BASO % 0.3 % (0.0-1.0); EOS # 0.1 10*3/uL (0.0-0.4); EOS % 0.8 % (1.0-4.0); HEMATOCRIT 43.4 % (37.0-47.0); LYMPH # 1.2 10*3/uL (1.3-4.4); LYMPH % 12.1 % (27.0-41.0); MEAN CELL VOLUME 87.5 fl (81.0-99.0); MEAN CORPUSCULAR HGB CONC 33.2 g/dl (33.0-37.0); MEAN PLATELET VOLUME 8.9 fl (9.6-12.3); MONO # 0.7 10*3/uL (0.1-1.0); MONO % 6.7 % (3.0-9.0); NEUT # 8.2 10*3/uL (2.3-7.9); NEUT % 79.2 % (47.0-73.0); PLATELET COUNT AUTOMATED 309 10*3/uL (130-400); RED BLOOD COUNT 4.96 10*6/uL (4.10-5.10); RED CELL DISTRI WIDTH 13.8 % (0-14.5); WHITE BLOOD COUNT 10.3 10*3/uL (4.8-10.8)
[2023-04-26 17:08] LABS: ACT PARTIAL THROMBO TIME 25.7 SECONDS (20.0-32.1)
[2023-04-26 17:32] LABS: ALKALINE PHOSPHATASE 102 U/L (46-116); BUN 18 mg/dl (9-23); CHLORIDE 103 mmol/L (98-107); LIPASE 59 U/L (12-53); POTASSIUM 4.4 mmol/L (3.4-5.1); SGPT/ALT < 7 U/L (5-49); TOTAL PROTEIN 6.8 gm/dL (6.0-8.0)
== END 2023-04-26 23:26 | disposition home or self-care (01) ==
LOC: ED 15:19
PROVIDERS: Emergency Medicine
DX: S22.41XA Multiple fractures of ribs, right side, initial encounter for closed fracture (principal); R07.89 Other chest pain; R09.02 Hypoxemia; J93.9 Pneumothorax, unspecified; J90 Pleural effusion, not elsewhere classified; J44.9 Chronic obstructive pulmonary disease, unspecified; F32.A Depression, unspecified; M19.90 Unspecified osteoarthritis, unspecified site; F41.9 Anxiety disorder, unspecified; E78.00 Pure hypercholesterolemia, unspecified; I11.0 Hypertensive heart disease with heart failure; I50.9 Heart failure, unspecified; Z90.49 Acquired absence of other specified parts of digestive tract; Z90.710 Acquired absence of both cervix and uterus; Z98.890 Other specified postprocedural states; F17.200 Nicotine dependence, unspecified, uncomplicated; W01.198A Fall on same level from slipping, tripping and stumbling with subsequent striking against other object, initial encounter; Y93.89 Activity, other specified; Y92.89 Other specified places as the place of occurrence of the external cause; Y99.8 Other external cause status

== ENCOUNTER 2024-04-20 23:35 | Emergency (ER) | payer OTHER ==
[~2024-04-20] VITALS: Ht 167.6 cm; Wt 70.8 kg
[2024-04-20 23:56] LABS: HEMATOCRIT 45.7 % (37.0-47.0); MEAN CELL VOLUME 87.4 fl (81.0-99.0); MEAN CORPUSCULAR HGB 28.7 pg (27.0-31.0); MEAN CORPUSCULAR HGB CONC 32.8 g/dl (33.0-37.0); MEAN PLATELET VOLUME 9.2 fl (9.6-12.3); PLATELET COUNT AUTOMATED 198 10*3/uL (130-400); RED BLOOD COUNT 5.23 10*6/uL (4.10-5.10); RED CELL DISTRI WIDTH 13.3 % (0-14.5); WHITE BLOOD COUNT 6.2 10*3/uL (4.8-10.8)
[2024-04-21 00:03] LABS: URINE AMPHETAMINES Negative (1000ng/ml); URINE BARBITURATES Negative (200ng/ml); URINE BENZODIAZEPINES Negative (200ng/ml); URINE CANNABINOIDS (THC) Negative (50ng/ml); URINE COCAINE Negative (300ng/ml); URINE METHADONE Negative (300ng/ml); URINE OPIATES Negative (300ng/ml); URINE PHENCYCLIDINE Negative (25ng/ml)
[2024-04-21 00:10] LABS: MANUAL DIFF REFLEX YES
[2024-04-21 00:21] LABS: POTASSIUM 3.6 mmol/L (3.4-5.1); TOTAL PROTEIN 7.5 gm/dL (6.0-8.0)
[2024-04-21 00:25] LABS: ATYPICAL LYMPHS 2 % (0-0); PLATELET SUFFICIENCY NORMAL (NORMAL); TOTAL CELLS COUNTED 100 #CELLS
[2024-04-21] MEDS ORDERED: SODIUM CHLORIDE 0.9% 500 ML IV ONE (01:25)
== END 2024-04-21 01:52 | disposition short-term general hospital (02) ==
LOC: ED 23:35
PROVIDERS: Internal Medicine
DX: S09.8XXA Other specified injuries of head, initial encounter (principal); S19.9XXA Unspecified injury of neck, initial encounter; R07.89 Other chest pain; J44.9 Chronic obstructive pulmonary disease, unspecified; F32.A Depression, unspecified; M19.90 Unspecified osteoarthritis, unspecified site; F41.9 Anxiety disorder, unspecified; I11.0 Hypertensive heart disease with heart failure; I50.9 Heart failure, unspecified; E78.00 Pure hypercholesterolemia, unspecified; F17.200 Nicotine dependence, unspecified, uncomplicated; Z90.49 Acquired absence of other specified parts of digestive tract; Z90.710 Acquired absence of both cervix and uterus; Z98.890 Other specified postprocedural states; Z79.899 Other long term (current) drug therapy; V89.2XXA Person injured in unspecified motor-vehicle accident, traffic, initial encounter; Y93.89 Activity, other specified; Y92.89 Other specified places as the place of occurrence of the external cause; Y99.8 Other external cause status

== ENCOUNTER 2024-04-30 15:17 | Emergency (ER) | payer OTHER ==
[~2024-04-30] VITALS: Ht 167.6 cm; Wt 58.5 kg
[2024-04-30] MEDS ORDERED: methylPREDNISolone sod succ 125 MG VIAL IM ONE (15:45)
[2024-04-30 15:49] LABS: BASO % 0.3 % (0.0-1.0); EOS # 0.1 10*3/uL (0.0-0.4); HEMATOCRIT 46.2 % (37.0-47.0); MEAN CELL VOLUME 87.7 fl (81.0-99.0); MEAN CORPUSCULAR HGB 28.3 pg (27.0-31.0); MEAN CORPUSCULAR HGB CONC 32.3 g/dl (33.0-37.0); MEAN PLATELET VOLUME 8.7 fl (9.6-12.3); MONO # 0.9 10*3/uL (0.1-1.0); NEUT # 3.9 10*3/uL (2.3-7.9); NEUT % 55.1 % (47.0-73.0); PLATELET COUNT AUTOMATED 223 10*3/uL (130-400); RED BLOOD COUNT 5.27 10*6/uL (4.10-5.10); WHITE BLOOD COUNT 7.2 10*3/uL (4.8-10.8)
[2024-04-30 16:02] LABS: ACT PARTIAL THROMBO TIME 25.4 SECONDS (20.0-32.1)
[2024-04-30 16:10] LABS: ALKALINE PHOSPHATASE 102 U/L (46-116); BUN 12 mg/dl (9-23); CHLORIDE 103 mmol/L (98-107); POTASSIUM 4.1 mmol/L (3.4-5.1); SGPT/ALT 9 U/L (5-49); TOTAL PROTEIN 6.9 gm/dL (6.0-8.0)
[2024-04-30] MEDS ORDERED: Ketorolac Tromethamine 30 MG/ML VIAL IM ONE (16:20)
[2024-04-30] MEDS ORDERED: Acetaminophen/Oxycodone 5 MG/325 MG TABLET PO ONE (16:20)
[2024-04-30] MEDS ORDERED: HYDROCODONE-AC1 EAC1 PO (18:09)
== END 2024-04-30 18:57 | disposition home or self-care (01) ==
LOC: ED 15:17
PROVIDERS: Emergency Medicine
DX: R07.81 Pleurodynia (principal); J44.9 Chronic obstructive pulmonary disease, unspecified; F32.A Depression, unspecified; M19.90 Unspecified osteoarthritis, unspecified site; F41.9 Anxiety disorder, unspecified; I11.0 Hypertensive heart disease with heart failure; I50.9 Heart failure, unspecified; F17.200 Nicotine dependence, unspecified, uncomplicated; Z90.49 Acquired absence of other specified parts of digestive tract; Z90.710 Acquired absence of both cervix and uterus; Z98.890 Other specified postprocedural states

== ENCOUNTER 2024-09-11 13:12 | Emergency (ER) | payer OTHER ==
[~2024-09-11] VITALS: Ht 162.5 cm; Wt 54.4 kg
[~2024-09-11 13:12] MED LIST changes: +HYDROCODONE-AC1 EAC1 PO
[2024-09-11 13:32] VITALS: BP 88/31
[2024-09-11 13:48] VITALS: BP 82/39
[2024-09-11] MEDS ORDERED: SODIUM CHLORIDE 0.9% 1,000 ML IV ONE (13:50)
[2024-09-11 14:07] VITALS: BP 70/39
[2024-09-11] MEDS ORDERED: Doxycycline Hyclate 100 MG in SODIUM CHLORIDE 0.9% 250 ML IV ONE (14:25)
[2024-09-11] MEDS ORDERED: cefTRIAXone Sodium 1 GM/10 ML SYR IV ONE (14:25)
[2024-09-11 14:28] LABS: MEAN CELL VOLUME 89.1 fl (81.0-99.0); MEAN CORPUSCULAR HGB 28.3 pg (27.0-31.0); MEAN CORPUSCULAR HGB CONC 31.8 g/dl (33.0-37.0); MEAN PLATELET VOLUME 9.8 fl (9.6-12.3); PLATELET COUNT AUTOMATED 210 10*3/uL (130-400); RED BLOOD COUNT 5.05 10*6/uL (4.10-5.10); RED CELL DISTRI WIDTH 13.5 % (0-14.5); WHITE BLOOD COUNT 10.8 10*3/uL (4.8-10.8)
[2024-09-11 14:29] LABS: MANUAL DIFF REFLEX YES
[2024-09-11 14:42] LABS: ACT PARTIAL THROMBO TIME 27.7 SECONDS (20.0-32.1)
[2024-09-11 14:48] LABS: POTASSIUM 4.1 mmol/L (3.4-5.1); TOTAL PROTEIN 6.1 gm/dL (6.0-8.0)
[2024-09-11 14:52] LABS: TOTAL CELLS COUNTED 100 #CELLS
[2024-09-11 14:53] LABS: PLATELET SUFFICIENCY NORMAL (NORMAL)
[2024-09-11] MEDS ORDERED: NOREPINEPHRINE BITARTRATE/D5W 250 ML IV SCH (15:15)
[2024-09-11 15:56] LABS: ABG O2 SATURATION 96.7 % (94.0-98.0); ARTERIAL BLOOD GAS PH 7.32 (7.350-7.450); ARTERIAL BLOOD GAS PO2 96.4 mmHg (83.0-108.0)
[2024-09-11 15:57] LABS: ABG BASE EXCESS -6.2 mmol/L (-2.0-3.0)
[2024-09-11] MEDS ORDERED: Ondansetron Hydrochloride 4 MG/2 ML VIAL IV ONE ×2 (18:25→23:00)
[2024-09-11 20:48] VITALS: BP 115/91
[2024-09-11 22:05] VITALS: BP 107/52
[2024-09-11 22:46] VITALS: BP 111/39
[2024-09-11 23:14] LABS: BILIRUBIN 1+ (Negative); BLOOD 3+ (Negative); CLARITY Cloudy (Clear); COLOR Yellow (Yellow); GLUCOSE Negative (Negative); KETONE Trace (Negative)
[2024-09-11 23:15] LABS: LEUKO ESTERASE Negative (Negative); NITRITE Negative (Negative); UROBILINOGEN 0.2 E.U./dl (0.0-1.0)
[2024-09-11 23:21] LABS: BACTERIA 2+; RBC 16-20 rbc/hpf (0-2)
[2024-09-12 00:48] VITALS: BP 118/51
== END 2024-09-12 01:08 | disposition admitted as inpatient to this hospital (09) ==
LOC: ED 13:12 → EDHOLD 21:50
PROVIDERS: Internal Medicine
DX: A41.9 Sepsis, unspecified organism (principal); J18.9 Pneumonia, unspecified organism; J96.01 Acute respiratory failure with hypoxia; R65.21 Severe sepsis with septic shock; N18.4 Chronic kidney disease, stage 4 (severe); E44.0 Moderate protein-calorie malnutrition

== ENCOUNTER → 2025-03-06 | Outpatient (CLI) | payer OTHER | END | disposition home or self-care (01) | LOC: CT 14:38 | PROVIDERS: ATTEND Internal Medicine Critical Care Medicine | DX: J43.9 Emphysema, unspecified (principal); J44.9 Chronic obstructive pulmonary disease, unspecified; J98.11 Atelectasis; J45.40 Moderate persistent asthma, uncomplicated; I25.10 Atherosclerotic heart disease of native coronary artery without angina pectoris; Z87.891 Personal history of nicotine dependence; Z86.16 Personal history of COVID-19 ==